=== PATIENT | female | born 1960 | race Caucasian/White ===

== ENCOUNTER 2021-11-16 12:43 | Outpatient (CLI) | payer BC, SELFPAY ==
--- NOTE | ~2021-11-16 | XR_ITS ---
EXAMINATION: XR chest 2V Exam Date/Time: 11/16/2021 12:50 CDT HISTORY: R05.9 - Cough, unspecified Comparison: 1 day prior 04/03/2019. RESULT: Lines, tubes, and devices: Cholecystectomy clips. Lungs and pleura: Clear. Cardiomediastinal silhouette: Stable. Other: No acute osseous or upper abdominal finding. IMPRESSION: No acute cardiopulmonary process. Reviewed, dictated and finalized at location K.
== END 2021-11-16 12:44 | disposition home or self-care (01) ==
PROVIDERS: PCP Family Medicine; Visit Provider Nurse Practitioner Family
DX: R05.9 Cough, unspecified (principal)
CPT/HCPCS: 71046

== ENCOUNTER 2023-12-19 10:54 | Outpatient (CLI) | payer BC, SELFPAY ==
--- NOTE | ~2023-12-19 | CT_ITS ---
CT abdomen pelvis w con Ordering provider: LILIAN Oconnor History: 63 years Female with . R10.32 - Left lower quadrant pain . Comparison: November 06, 2018 Technique: CT abdomen and pelvis with IV and without oral contrast. Automated exposure control and it erative reconstruction technique were employed. The dose-length product was 1248.93 mGy-cm. Findings: VISUALIZED LOWER CHEST: Dependent atelectatic changes. UPPER ABDOMINAL ORGANS: Liver: Normal. Gallbladder: Status post cholecystectomy. Spleen: Normal. Stomach/duodenum: Sliding hiatus hernia. Postoperative changes in the stomach. Pancreas: Normal. Adrenals: Normal. Kidneys: Small cyst in the left kidney upper and mid poles. Stones are also seen in the left kidney m id and lower poles with the largest measures 4 mm. No ureteric stone. PELVIC ORGANS: The bladder is normal. BOWEL AND MESENTERY: Colon: Mild sigmoid diverticulosis without diverticulitis. Normal appendix. Small Bowel: Normal. No obstruction. Peritoneum/mesentery: No free air or free fluid. No mesenteric lymphadenopathy. RETROPERITONEUM: Mild atheromatous disease of the abdominal aorta. No retroperitoneal lymphadenopat hy. MUSCULOSKELETAL: Superficial soft tissues: The superficial soft tissues are normal. Bones: Age appropriate degenerative changes of the spine. Sclerotic lesion in T9. Follow-up advised IMPRESSION: 1. 2 left kidney stones. No hydronephrotic changes on ureteric stones. 2. Sliding hiatus hernia. Reviewed, dictated and finalized at location A.
[2023-12-19 11:42] LABS: Estimated Glomerular Filt Rate > 60
== END 2023-12-19 10:55 | disposition home or self-care (01) ==
LOC: ANHIMG 10:58
PROVIDERS: PCP Family Medicine; Visit Provider Physician Assistant Medical
DX: R10.32 Left lower quadrant pain (principal); R31.9 Hematuria, unspecified; Z87.19 Personal history of other diseases of the digestive system; K44.9 Diaphragmatic hernia without obstruction or gangrene; N20.0 Calculus of kidney
CPT/HCPCS: 74177; Q9967

== ENCOUNTER 2023-12-28 09:33 | Outpatient (CLI) | payer BC, SELFPAY ==
--- NOTE | ~2023-12-28 | CT_ITS ---
EXAMINATION: CT thoracic spine w con DATE: 12/28/2023 10:04 INDICATION: Disorder of bone, unspecified. TECHNIQUE: Computed tomography (CT) of the thoracic spine was performed with 100 mL Omnipaque 350 int ravenous contrast. Automated exposure control and iterative reconstruction technique were employed. T he dose-length product was 1034.74 mGy-cm. COMPARISON: CT abdomen and pelvis 11/06/2018 FINDINGS: A calcified left lung nodule and calcified mediastinal lymph nodes are consistent with old granulomatous disease. There is a small sliding hiatal hernia. There are surgical changes of the stom ach. There is a 4 mm stone in left kidney. There is 3 mm anterolisthesis of C7 on T1. Vertebral body heights are normal. There is a benign bone island in T9 vertebral body. There is decreased disc heigh t at most levels, severe from T4-T5 through T9-T10 and at T12-L1. There is multilevel facet joint ost eoarthritis, severe at a few levels. On the right, there is mild neural foraminal stenosis at T2-T3 a nd T4-T5. On the left, there is mild neural foraminal stenosis at T5-T6, T6-T7, T11-T12, and T12-L1. There is mild central canal stenosis from T4-T5 through T12-L1. IMPRESSION: 1. Severe thoracic spondylosis. 2. Benign bone island in T9, stable from 11/06/2018. Reviewed, dictated and finalized at location A.
== END 2023-12-28 09:34 | disposition home or self-care (01) ==
PROVIDERS: PCP Family Medicine; Visit Provider Physician Assistant Medical
DX: M89.9 Disorder of bone, unspecified (principal); M47.894 Other spondylosis, thoracic region
CPT/HCPCS: 72129; Q9967

== ENCOUNTER 2024-01-16 08:53 | Outpatient (CLI) | payer BC, SELFPAY ==
--- NOTE | ~2024-01-16 | XR_ITS ---
EXAMINATION: XR abdomen/kub 1V DATE: 01/16/2024 09:07 INDICATION: Kidney stone. Generalized abdominal pain. TECHNIQUE: A supine view of the abdomen on 2 radiographs was obtained. COMPARISON: Abdomen radiographs 12/02/2017, CT abdomen and pelvis 12/19/2023 FINDINGS: There are no dilated loops of bowel. There are 5 mm and 6 mm stones in left kidney. Surgica l clips in the right upper quadrant are likely from cholecystectomy. IMPRESSION: 1. Left kidney stones. Reviewed, dictated and finalized at location B. IMPRESSION: 1. Left kidney stones.
== END 2024-01-16 08:54 | disposition home or self-care (01) ==
PROVIDERS: PCP Family Medicine; Visit Provider Urology
DX: N20.0 Calculus of kidney (principal)
CPT/HCPCS: 74018

== ENCOUNTER 2024-02-05 09:11 | Outpatient (CLI) | payer BC, SELFPAY ==
--- NOTE | 2024-02-05 09:19 | ECG_ITS ---
Test Date: 2024-02-05 09:44:26 Measurements Intervals [place] Rate: 58 P: 79 [place]: 132 QRS: -14 QRSD: 99 T: -4 QT: 393 QTc: 386 Interpretive Statements SINUS BRADYCARDIA DELAYED PRECORDIAL R/S TRANSITION NONSPECIFIC ST-T WAVE ABNORMALITY- ANTEROLAT/INF LEADS BASELINE ARTIFACT- I, II, III, AVR, AVF BORDERLINE ECG No previous ECG available for comparison Electronically Signed On 02-05-2024 10:02:27 PHYSICAL SCIENCES INSTRUCTOR by Jim Early D.O.
[2024-02-05 10:20] LABS: Prothrombin Time 13.4 Seconds (11.1-14.7)
[2024-02-05 10:21] LABS: Partial Thromboplastin Time 24.5 Seconds (22.3-36.8)
== END 2024-02-05 09:12 | disposition home or self-care (01) ==
PROVIDERS: PCP Family Medicine; Visit Provider Urology
DX: N23 Unspecified renal colic (principal); R00.2 Palpitations; R94.31 Abnormal electrocardiogram [ECG] [EKG]
CPT/HCPCS: 36415; 85610; 85730; 87077; 87086; 87186; 93005

== ENCOUNTER 2024-02-13 08:51 | Outpatient (CLI) | payer BC, SELFPAY ==
[2024-02-13 09:48] LABS: Partial Thromboplastin Time 25.3 Seconds (22.3-36.8); Prothrombin Time 13.4 Seconds (11.1-14.7)
== END 2024-02-13 08:52 | disposition home or self-care (01) ==
LOC: ANHSURGERY 08:54
PROVIDERS: PCP Family Medicine; Visit Provider Urology
DX: Z01.818 Encounter for other preprocedural examination (principal); R31.9 Hematuria, unspecified
CPT/HCPCS: 36415; 85610; 85730; 87086

== ENCOUNTER 2024-02-22 01:50 | Day surgery (SDC) | payer BC, SELFPAY ==
[2024-02-04 15:42] VITALS: BMI 35.9
--- NOTE | 2024-02-04 15:52 | PC.NURSE ---
Report to the Outpatient Waiting Room, entrance under the green pavilion located off [facility], at time _0630_ on date _[id number]_. Planned Procedure Time: _0830_.? Time changes happen often and if your time is changed the preop area will call you the afternoon before. - You and your visitor will be asked to self-screen and do not enter if you have any COVID symptoms. Please call surgeon if you need to reschedule. - A mask is optional within the hospital at this time. Patients may have clear liquids (water, carbonated beverages, clear teas, apple juice) until 3 hours prior to surgery with a maximum of 20 ounces. - No food from midnight until time of surgery and no smoking. This includes no chewing gum, candy or mints. Take only the following medications with a SIP of water on the morning of surgery: __Propanolol__ DO NOT STOP ANY OF YOUR OTHER PRESCRIPTION MEDICATIONS PRIOR TO SURGERY EXCEPT THE FOLLOWING Medications to discontinue per physician ____None____ Please no make-up, nail ivorian, hairspray, perfume, deodorant, or body powder the day of surgery.? No jewelry (including any body piercings) or valuables the day of surgery, leave them at home.? Please take a shower or bath the night before, or the morning of, surgery with an antibacterial soap.? Wear comfortable, loose fitting clothing.? - Jewelry must be removed prior to entering the operating room.? Rings and piercings that are not removed may be cut off. - The hospital will not accept responsibility for valuables.? - Please leave all valuables, including medications, at home the day of surgery. If you are going home after surgery, a licensed straight truck driver must drive you home.? - NO public transportation without another adult if you receive anesthesia. - We recommend that an adult stay with you for 24 hours following discharge. - We also recommend that you do not drive, make important decision, drink alcoholic beverages, or take any drugs that were not prescribed by your health care provider for at least 24 hours after your discharge time. Follow any additional instructions given to you from your surgeon. Telephone instructions given to _Yamel_and asked if any additional questions and then verbalized understanding. Patient advised to call surgeon office or pre surgery nurse liaison [phone] if any additional questions.
--- NOTE | 2024-02-11 13:54 | PC.NURSE ---
Addendum entered by Amber Brennan RN 02/11/24 14:08: SURGERY TIME 0730 Original Note: Report to the Outpatient Waiting Room, entrance under the green pavilion located off [facility], at time 0600_ on date 02/22/24_. Planned Procedure Time: ____.? Time changes happen often and if your time is changed the preop area will call you the afternoon before. - You and your visitor will be asked to self-screen and do not enter if you have any COVID symptoms. Please call surgeon if you need to reschedule. - A mask is optional within the hospital at this time. Patients may have clear liquids (water, carbonated beverages, clear teas, apple juice) until 3 hours prior to surgery with a maximum of 20 ounces. - No food from midnight until time of surgery and no smoking. This includes no chewing gum, candy or mints. - Infants may have breast milk until 4 hours before surgery, infant formula 6 hours prior to surgery. - Children will be allowed to drink immediately following surgery.? If applicable, please bring a bottle or sippy cup to assist with drinking. Juice, water, soda, and popsicles are readily available.? For infants on formula, please bring formula the day of surgery.? Pacifiers are allowed. Take only the following medications with a SIP of water on the morning of surgery: ____PROPANOLOL DO NOT STOP ANY OF YOUR OTHER PRESCRIPTION MEDICATIONS PRIOR TO SURGERY EXCEPT THE FOLLOWING Medications to discontinue per physician NONE Date to take last dose Please no make-up, nail vietnamese, hairspray, perfume, deodorant, or body powder the day of surgery.? No jewelry (including any body piercings) or valuables the day of surgery, leave them at home.? Please take a shower or bath the night before, or the morning of, surgery with an antibacterial soap.? Wear comfortable, loose fitting clothing.? Children are encouraged to wear pajamas. - Jewelry must be removed prior to entering the operating room.? Rings and piercings that are not removed may be cut off. - The hospital will not accept responsibility for valuables.? - Please leave all valuables, including medications, at home the day of surgery. If you are going home after surgery, a licensed milk truck driver must drive you home.? - NO public transportation without another adult if you receive anesthesia. - We recommend that an adult stay with you for 24 hours following discharge. - We also recommend that you do not drive, make important decision, drink alcoholic beverages, or take any drugs that were not prescribed by your health care provider for at least 24 hours after your discharge time. For Pediatric surgeries, we recommend two adults accompany the child home. Follow any additional instructions given to you from your surgeon. Telephone instructions given to _PATIENT_and asked if any additional questions and then verbalized understanding. Patient advised to call surgeon office or pre surgery nurse liaison [phone] if any additional questions.
--- NOTE | 2024-02-11 14:11 | PC.NURSE ---
SPOKE WITH PT. DENIES ANY CHANGE IN HEALTH OR MEDICATION. NEW INSTRUCTIONS REVIEWED. PT DENIES QUESTIONS, SET UP FOR TESTING.
[2024-02-22] VITALS (7 sets, daily range): BP systolic 95–138; BP diastolic 58–88; PULSE 46–73; RESP 12–20; TEMP 36.1–36.6; O2SAT 95–100
--- NOTE | ~2024-02-22 | XR_ITS ---
Supine and upright views of the abdomen Clinical history: Lithotripsy COMPARISON: 01/16/2024 Findings: Bowel gas pattern is nonspecific. No evidence for obstruction or free air. Stable small lef t renal stones are present. There is degenerative spondylosis of the spine. Impression: Stable small left renal stones. Reviewed, dictated and finalized at [facility]. 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
[2024-02-22] MEDS: LACTATED RINGERS 1,000 ML 30 ML IV CONT ×2 (06:30→08:50)
--- NOTE | 2024-02-22 07:06 | P.PNAN_ITS ---
Anes - Initial Pre Proc Eval Procedure: Operation Date: 02/22/24 07:30 Proposed Procedures p Left Extracorporeal Shock Wave Lithotripsy - Pierre Watts MD Date/Time: 02/22/24 07:06 Surgeon: Pierre Watts MD Pre Op Diagnosis: left renal stone Patient Data Age: 63 Gender: F Height: 1.56 m Weight: 87.7 kg Allergies Allergy/AdvReac Type Severity Reaction Status Date / Time No Known Allergies Allergy Verified 02/04/24 15:38 Home Medications Medication Instructions Recorded Confirmed Type albuterol sulfate 90 mcg/actuation 2 inh inhalation Q4H PRN shortness 11/15/21 02/04/24 Rx aerosol inhaler of breath or wheezing #8.5 grams tizanidine 4 mg tablet 4 mg PO TID PRN muscle spasticity 04/14/22 02/04/24 Rx #30 tabs glycopyrrolate 2 mg tablet See Rx Instructions .Route 07/25/23 02/04/24 Rx .COMPLEX #360 tabs diazepam 10 mg tablet 10 mg PO DAILY PRN anxiety #45 tabs 09/12/23 02/04/24 Rx omeprazole 40 mg capsule,delayed See Rx Instructions .Route 10/28/23 02/04/24 Rx release .COMPLEX #90 caps propranolol 80 mg capsule,24 80 mg PO DAILY #90 caps 10/28/23 02/04/24 Rx hr,extended release armodafinil 150 mg tablet 150 mg PO QAM shift work #30 tabs 11/05/23 02/04/24 Rx naltrexone 8 mg-bupropion 90 mg See Rx Instructions .Route 12/24/23 02/04/24 Rx tablet,extended release (Contrave) .COMPLEX #120 tabs lamotrigine 200 mg tablet See Rx Instructions .Route 02/07/24 Rx .COMPLEX #180 tabs Patient hx anesthesia problems: none Family hx anesthesia problems: none Results Review: All pre-operative results and documents have been reviewed as part of the pre- operative evaluation. [facility] Past Medical History Medical History Anxiety Bilateral finger arthralgia Essential hypertension Hyperhidrosis Kidney stones Left shoulder pain Surgical History Surgical History History of x2 History of hysterectomy 1996 heavy bleeding History of tubal ligation 1982 Hx of cholecystectomy Family History Family History Mother Hypertension Father No problems noted. Sibling No problems noted. Other Family history of allergic disorder Family history of malignant neoplasm Heart disease Malignant neoplasm of prostate Social History Social History Years smoked: 8 Smoking status: Former smoker Tobacco type: cigarettes Second hand tobacco smoke exposure: No Smoking end date: 02/04/96 Alcohol intake: current Drinks per week: 0 Alcohol use details: rarely Substance use: current Substance use type: marijuana Other substance usage details: Gummies to help sleep sometimes. 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 HTN/palpitations, on b gisselle taken this am. Obesity, s/p gastric sleeve approx 2013, lost approx 100 lbs. Walks 1-2 fos, no cp or sob. Informed Consent: The patient's anesthetic plan and its attendant risks and benefits were dis cussed with the patient/family/POA. Questions were solicited and answers provided to the satisfaction of the patient/family/POA.
--- NOTE | 2024-02-22 07:18 | P.HP_ITS ---
H&P: HPI History of Present Illness Date/Time: 02/22/24 07:18 Chief Complaint: left renal calculus Narrative: 63 yr old female with 2 left renal stones presents for eswl. Review of Systems Review of Systems: All systems reviewed & are unremarkable except as noted in HPI and below PMFSH Past Medical History Medical History Anxiety Bilateral finger arthralgia Essential hypertension Hyperhidrosis Kidney stones Left shoulder pain Surgical History Surgical History History of x2 History of hysterectomy 1996 heavy bleeding History of tubal ligation 1982 Hx of cholecystectomy Family History Family History Mother Hypertension Father No problems noted. Sibling No problems noted. Other Family history of allergic disorder Family history of malignant neoplasm Heart disease Malignant neoplasm of prostate Social History Social History Years smoked: 8 Smoking status: Former smoker Tobacco type: cigarettes Second hand tobacco smoke exposure: No Smoking end date: 02/04/96 Alcohol intake: current Drinks per week: 0 Alcohol use details: rarely Substance use: current Substance use type: marijuana Other substance usage details: Gummies to help sleep sometimes. 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 Gender identity (if verbalized by the patient): Female Spiritual care concerns: No Meds Home Medications and Allergies Home Medications Medication Instructions Recorded Confirmed Type albuterol sulfate 90 mcg/actuation 2 inh inhalation Q4H PRN shortness 11/15/21 02/04/24 Rx aerosol inhaler of breath or wheezing #8.5 grams tizanidine 4 mg tablet 4 mg PO TID PRN muscle spasticity 04/14/22 02/04/24 Rx #30 tabs glycopyrrolate 2 mg tablet See Rx Instructions .Route 07/25/23 02/04/24 Rx .COMPLEX #360 tabs diazepam 10 mg tablet 10 mg PO DAILY PRN anxiety #45 tabs 09/12/23 02/04/24 Rx omeprazole 40 mg capsule,delayed See Rx Instructions .Route 10/28/23 02/04/24 Rx release .COMPLEX #90 caps propranolol 80 mg capsule,24 80 mg PO DAILY #90 caps 10/28/23 02/04/24 Rx hr,extended release armodafinil 150 mg tablet 150 mg PO QAM shift work #30 tabs 11/05/23 02/04/24 Rx naltrexone 8 mg-bupropion 90 mg See Rx Instructions .Route 12/24/23 02/04/24 Rx tablet,extended release (Contrave) .COMPLEX #120 tabs lamotrigine 200 mg tablet See Rx Instructions .Route 02/07/24 Rx .COMPLEX #180 tabs Allergies Allergy/AdvReac Type Severity Reaction Status Date / Time No Known Allergies Allergy Verified 02/04/24 15:38 Exam Const: General: cooperative and comfortable Resp: Effort & Inspection: normal respiratory effort Cardio: Rate: regular rate Rhythm: regular rhythm Assessment and Plan Assessment and plan (1) Left renal stone: Code(s): N20.0 - Calculus of kidney Status: Acute Assessment and Plan: proceed with left renal eswl.
--- NOTE | 2024-02-22 07:18 | WPDHPUPDATE1 ---
History and Physical Update Update Date/Time: 02/22/24 07:18 History and Physical has been reviewed, including an updated exam of the patient. There are NO changes in the patient's condition. Risks, benefits, and alternatives have been discussed and questions answered. Patient agrees to proceed with procedure.
[2024-02-22] MEDS: ceFAZolin 2 GM/D5W 50 ML 2 GM/50 ML BAG IVPB (07:26)
--- NOTE | 2024-02-22 08:13 | W.PM.PROC2 ---
Procedure Note - Detailed Date of Procedure 02/22/24 Pre-op Diagnosis left renal stone Post-op Diagnosis Same Procedure Performed Lithotripsy of left renal calculi 2100 shocks to the superior stone 400 shocks to the lower stone Surgeon Pierre Watts MD Anesthesia General Description of Procedure Patient is taken the operative suite correctly identified. Once anesthesia was obtained the more superior stone was localized in both planes. After 2100 shocks there appeared to be fairly good fragmentation. We then gave the last 100 shocks to the lower pole stone. Patient tolerated procedure well without any complications and was taken recovery stable condition. She will follow-up in a week 7-10 days with KUB. This completes dictation. Please send a copy of op note to my office Estimated Blood Loss 0 Drains No Packing No Pathology None sent Complications No immediate complications Condition Stable Disposition PACU
[2024-02-22] MEDS: oxyCODONE HCL (*CRX) 5 MG TAB IR PO (09:12)
== END 2024-02-22 09:46 | disposition home or self-care (01) ==
PROVIDERS: PCP Family Medicine; Visit Provider Urology
PROC: (CPT 50590; principal; 2024-02-22 07:30)
DX: N20.0 Calculus of kidney (principal); I10 Essential (primary) hypertension; F41.9 Anxiety disorder, unspecified; Z87.891 Personal history of nicotine dependence
CPT/HCPCS: 50590; 74018; A9270; J0690; J1100; J2003; J2405; J2704; J3010; J7120